=== PATIENT | male | born 1970 | race African-American/Black ===

== ENCOUNTER 2016-07-17 12:06 | Emergency (ER) | payer MEDICAID ==
[~2016-07-17] VITALS: Ht 172.7 cm; Wt 88.0 kg
[2016-07-17 14:45] LABS: BASOPHILS % 0.9 % (0.0-2.0); EOSINOPHILS % 0.1 % (0.0-5.0); HEMATOCRIT. 48.2 % (42.0-52.0); HEMOGLOBIN. 16.4 g/dL (14.0-18.0); LYMPHOCYTES % 22.9 % (20.0-50.0); MEAN CORPUSCULAR HEMOGLOBIN 32.8 pg (28.0-32.0); MEAN CORPUSCULAR HGB CONC 34.1 g/dL (31.0-37.0); MEAN CORPUSCULAR VOLUME 96.2 fL (80.0-94.0); MEAN PLATELET VOLUME 8.2 fl (7.4-10.4); MONOCYTES % 9.5 % (2.0-8.0); NEUTROPHILS % 66.6 % (40.0-76.0); PLATELET 225 x1000/uL (130-400); RED CELL DISTRIBUTION WIDTH 13.9 % (11.6-14.6); WHITE BLOOD COUNT 8.1 x1000/uL (4.5-11.0)
[2016-07-17 14:50] LABS: PROTHROMBIN TIME 10.9 sec
[2016-07-17 15:00] LABS: ACETAMINOPHEN < 2 ug/mL (10-30); ALANINE AMINOTRANSFERASE 56 IU/L (13-61); ANION GAP 13; CALCIUM 9.5 mg/dL (8.5-10.1); CARBON DIOXIDE 25 mEq/L (21-32); CHLORIDE 104 mEq/L (98-107); ETHANOL BLOOD < 10 mg/dL; INDEX HEMOLYSI 1 (1-3); INDEX ICTERIC 1 (1-4); INDEX LIPEMIC 1 (1-3); NT PRO B-TYPE NATRIURETIC PEP 11 pg/mL (5-125); TROPONIN I < 0.02 ng/mL (0.00-0.04); UREA NITROGEN BLOOD 20 mg/dL (7-21); eGFR > 60 mL/min (>60)
[2016-07-17 15:09] VITALS: BP 144/64
[2016-07-17 15:09] LABS: CREATINE KINASE 4733 IU/L (39-308)
[2016-07-17] MEDS ORDERED: SIMETHICONE 40 MG/0.6 ML 30ML ONE (15:53)
== END 2016-07-17 15:18 | disposition left against medical advice (07) ==
LOC: ER 12:11
DX: R53.1 Weakness (principal); I10 Essential (primary) hypertension; J45.909 Unspecified asthma, uncomplicated; E11.9 Type 2 diabetes mellitus without complications; F17.210 Nicotine dependence, cigarettes, uncomplicated; F12.10 Cannabis abuse, uncomplicated
CPT/HCPCS: 36415; 70450; 71010; 80053; 80307; 80329; 82550; 83880; 84443; 84484; 85025; 85610; 93005; 99285; G0482; Z7610

== ENCOUNTER 2016-07-19 12:57 | Emergency (ER) | payer MEDICAID ==
[~2016-07-19] VITALS: Ht 172.7 cm; Wt 80.0 kg
[2016-07-19] MEDS ORDERED: KETOROLAC 60MG/2ML VIAL IM ONE (14:45)
[2016-07-19 15:27] VITALS: BP 139/87
== END 2016-07-19 15:33 | disposition home or self-care (01) ==
LOC: ER 15:24
DX: H11.31 Conjunctival hemorrhage, right eye (principal); S00.512A Abrasion of oral cavity, initial encounter; M25.512 Pain in left shoulder; R53.1 Weakness; W22.8XXA Striking against or struck by other objects, initial encounter; Y93.89 Activity, other specified; Y92.89 Other specified places as the place of occurrence of the external cause; E11.9 Type 2 diabetes mellitus without complications; I10 Essential (primary) hypertension; M79.622 Pain in left upper arm; F17.210 Nicotine dependence, cigarettes, uncomplicated; F12.90 Cannabis use, unspecified, uncomplicated; Z87.828 Personal history of other (healed) physical injury and trauma
CPT/HCPCS: 73030; 96372; 99284; J1885; Z7610